=== PATIENT | female | born 1955 | race Caucasian/White ===

== ENCOUNTER 2019-05-07 07:35 | Day surgery (SDC) | payer MEDICARE, OTHER ==
[~2019-05-07 07:35] MED LIST: Lactated Ringers 1,000 ML IV SCH; Sodium Chloride 0.9% 10 ML Syringe FLUSH PRN
[2019-05-07] MEDS ORDERED: Propofol 200 MG/20 ML SDV IV ONE (07:36)
[2019-05-07] MEDS ORDERED: Lidocaine 2% 5 ML SDV INJECT ONE (07:36)
[2019-05-07] MEDS ORDERED: Simethicone Drops 40 MG/0.6 ML 30 ML Bottle ONE (09:27)
--- NOTE | 2019-05-07 09:52 | PCM.OPNOTE ---
- General Post-Op/Procedure Note Date of Surgery/Procedure: 05/07/19 Operative Procedure(s): c scope Findings: nl exam Pre Op Diagnosis: screening Post-Op Diagnosis: nl c scope Anesthesia Technique: MAC Primary Surgeon: Erickson Escalante Anesthesia Provider: Baldomero Felix Pathology: none Complications: None Condition: Good Free Text/Narrative:: see dictation
--- NOTE | 2019-05-07 15:13 | OR ---
DATE OF OPERATION: 05/07/2019 SURGEON: Erickson Escalante MD PROCEDURE PERFORMED: Colonoscopy. PREOPERATIVE DIAGNOSIS: Need for colon cancer screening. POSTOPERATIVE DIAGNOSIS: Normal exam. INDICATIONS FOR PROCEDURE: This is a 63-year-old white female who presents for screening colonoscopy. She was offered and accepted same. DESCRIPTION OF OPERATION: After an excellent IV sedation was administered, digital rectal exam was performed. No marked abnormality was noted. Flexible colonoscope was inserted and advanced to the cecum. The prep was excellent. The following findings were noted: Ascending colon, unremarkable. Transverse colon, unremarkable. Descending colon, unremarkable. Sigmoid and rectum, unremarkable. Colon was deflated. Scope was removed. Patient tolerated the procedure well, was taken to recovery in good condition. Repeat scope in 10 years. /[id number] /MODL
== END 2019-05-07 10:19 | disposition home or self-care (01) ==
LOC: FB.SDS 07:35
PROVIDERS: ATTEND Surgery
DX: Z12.11 Encounter for screening for malignant neoplasm of colon (principal); E78.5 Hyperlipidemia, unspecified; I10 Essential (primary) hypertension; J45.20 Mild intermittent asthma, uncomplicated; Z79.899 Other long term (current) drug therapy; Z88.0 Allergy status to penicillin
CPT/HCPCS: 00812; A9270; G0121; J2001; J2704; J7120

== ENCOUNTER 2019-05-27 23:39 | Emergency (ER) | payer MEDICARE, OTHER ==
--- NOTE | 2019-05-28 | EDM.PDOC ---
ED HPI GENERAL MEDICAL PROBLEM - General Stated Complaint: leg bruising Time Seen by Provider: 05/27/19 23:45 Source of Information: Reports: Patient History Limitations: Reports: No Limitations - History of Present Illness INITIAL COMMENTS - FREE TEXT/NARRATIVE: Patient is a 63 YO WF who presented to the ED because of swelling and bruising over the left hip where the incision site. There is no fever or chills. She had a rt hip surger5 days ago. - Related Data Allergies Allergy/AdvReac Type Severity Reaction Status Date / Time Penicillins Allergy Hives Verified 05/07/19 08:12 Home Meds: Home Meds Albuterol Sulfate [Proair Hfa] 2 puff IH Q4H PRN 05/06/19 [History] Alendronate Sodium [Fosamax] 70 mg PO TH 05/06/19 [History] Budesonide/Formoterol [Symbicort 160-4.5 MCG] 2 puff INH BID 05/06/19 [History] Calcium Carbonate/Vitamin D3 [Calcium 500 + Vit D 400] 1 each PO BID 05/06/19 [ History] Cyanocobalamin (Vitamin B-12) [B-12] 1,000 mcg PO DAILY 05/06/19 [History] Ferrous Sulfate [Iron] 325 mg PO DAILY 05/06/19 [History] Losartan [Cozaar] 50 mg PO DAILY 05/06/19 [History] Lutein/Minerals/Vit A,C & E [Ocuvite] 1 tab PO DAILY 05/06/19 [History] Multivit-Min/FA/Lycopene/Lut [Centrum Silver Tablet] 1 each PO DAILY 05/06/19 [ History] Simvastatin [Zocor] 20 mg PO DAILY 05/06/19 [History] Past Medical History HEENT History: Reports: Cataract Other HEENT History: 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 , MYOPIA BOTH EYES, PRESBYOPIA BOTH EYES Cardiovascular History: Reports: High Cholesterol, Hypertension Respiratory History: Reports: Asthma Musculoskeletal History: Reports: Arthritis Other Musculoskeletal History: ADHESIVE CAPSULITIS OF SHOULDER, OSTEOPENIA OF MULTIPLE SITES - Past Surgical History GI Surgical History: Reports: Colonoscopy Female Surgical History: Reports: Section Musculoskeletal Surgical History: Reports: Hip Replacement Other Musculoskeletal Surgeries/Procedures:: HIP ARTHROPLASTY Social & Family History - Caffeine Use Caffeine Use: Reports: Coffee ED ROS GENERAL - Review of Systems Review Of Systems: See Below Constitutional: Reports: No Symptoms HEENT: Reports: No Symptoms Respiratory: Reports: No Symptoms Cardiovascular: Reports: No Symptoms Endocrine: Reports: No Symptoms GI/Abdominal: Reports: No Symptoms : Reports: No Symptoms Skin: Reports: Bruising ED EXAM, GENERAL - Physical Exam Exam: See Below Exam Limited By: No Limitations General Appearance: Alert, No Apparent Distress Back Exam: Normal Inspection, Full Range of Motion Extremities: Normal Inspection, Normal Range of Motion, Non-Tender Neurological: Alert, Oriented, CN II-XII Intact, Normal Cognition Psychiatric: Normal Affect, Normal Mood Skin Exam: Warm, Dry, Intact, No Rash, Other (bruisng and swelling right hip) Departure - Departure Time of Disposition: 23:55 Disposition: Home, Self-Care 01 Condition: Good Clinical Impression: Post-op pain - Discharge Information *PRESCRIPTION DRUG MONITORING PROGRAM REVIEWED*: No *COPY OF PRESCRIPTION DRUG MONITORING REPORT IN PATIENT SUMAN: No Referrals: PCP,None [Primary Care Provider] - Additional Instructions: please read discharge instructions on post op pain apply ice you can take ibuprofen 600mg with tylenol 650 mg every 4-6 hours as needed for pain.
== END 2019-05-28 00:12 | disposition home or self-care (01) ==
LOC: FB.ED 23:39
DX: G89.18 Other acute postprocedural pain (principal); M25.552 Pain in left hip; I10 Essential (primary) hypertension; E78.5 Hyperlipidemia, unspecified; J45.909 Unspecified asthma, uncomplicated; Z96.641 Presence of right artificial hip joint; Z88.0 Allergy status to penicillin; Z79.51 Long term (current) use of inhaled steroids; Z79.899 Other long term (current) drug therapy
CPT/HCPCS: 99282